=== PATIENT | female | born 1990 | race Hispanic/Latino ===

== ENCOUNTER 2016-10-02 09:49 | Day surgery (SDC) | payer MEDICAID ==
[2016-10-02 10:10] VITALS: RESP 20
[2016-10-02 10:17] VITALS: BMI 31.5
[2016-10-02] MEDS ORDERED: MethylPREDNISolone Depo 40 mg/ml Inj ONE (10:27)
[2016-10-02] MEDS ORDERED: Propofol 10 mg/ml Inj (20 ML) ONE ×2 (10:43→10:52)
[2016-10-02] MEDS: Bupivacaine HCl 0.25% PF (10 ml) Inj ONE ×2 (10:44→10:55)
[2016-10-02] MEDS: Iohexol 300 10 ML ONE ×2 (10:44→10:55)
[2016-10-02] MEDS: Lidocaine 1% Inj (20ml) ONE ×2 (10:45→10:55)
[2016-10-02] MEDS ORDERED: Lactated Ringer's 1,000 ML IV ONE ×2 (10:45)
[2016-10-02] MEDS: methylPREDNISolone Depo 80 mg/ml Inj ONE ×2 (10:45→10:55)
[2016-10-02 11:57] VITALS: BP 122/76; PULSE 89; TEMP 98.4; O2SAT 100
--- NOTE | 2016-10-02 14:42 | RAD ---
PROCEDURE: Lumbar Epidural Injection HISTORY: PAIN MANAGEMENT TECHNIQUE: Fluoroscopic guidance was provided for epidural injection for pain management purposes. FINDINGS: IMPRESSION: Fluoroscopic guidance provided for epidural injection. Please refer procedure.
--- NOTE | 2016-10-02 17:49 | OP ---
PROCEDURE DATE: 10/02/2016 PREOPERATIVE DIAGNOSIS: Lumbar radiculopathy. POSTOPERATIVE DIAGNOSIS: Lumbar radiculopathy. PROCEDURE: Bilateral L4-L5 transforaminal epidural steroid injection. ANESTHESIOLOGIST: Dr. Stevenson. SURGEON: Dr. Powell. ANESTHESIA TYPE: Monitored anesthesia care. COMPLICATIONS: None. SPECIMEN: None. PROCEDURE: After re-discussion of the procedure with the patient including its risks, benefits, alte rnatives, outcome data, possibility of no effect or increased pain, the patient consented to the proc edure. She denies any recent infections, bleeding tendencies, or being on anticoagulants. Decision was then made to proceed to the OR. The patient was placed on the fluoroscopy table in a prone position with 2 pillows underneath her abd omen. The L4 vertebral levels were first identified in anterior-posterior view. The procedure was f irst performed on the right side by turning the fluoroscopy towards the right at approximately 20 deg ree oblique angle. The skin overlying the 6 o'clock position of the pedicles was then infiltrated wi th 1% lidocaine using a 25 gauge needle. Subsequently, a 22 gauge 3-1/2 inch spinal needle was then incrementally advanced under fluoroscopic guidance until tip of the needle lay within the interverteb ral foramen. The same procedure was then repeated on the contralateral left side at the same levels. After appropriate placement of both needles, which was confirmed on the anteroposterior view and la teral views, approximately 1 mL of Isovue contrast was injected showing appropriate epidural and nerv e root spread without any signs of CSF or intravenous involvement. At this point, approximately 3 mL of 0.25% Marcaine and Depo-Medrol mixture was injected into each needle. At the end of the case, th e needles were removed and the patient's back was cleaned and dried and Band-Aids were applied. 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 She will have a followup in office in approximately 2-4 weeks. En-Oskar Powell MD cc: [id number] TT: 10/02/2016 17:49:04 calvin
== END 2016-10-02 12:30 | disposition home or self-care (01) ==
LOC: H.OPSURG 09:49
PROVIDERS: ATTEND Anesthesiology
DX: M51.26 Other intervertebral disc displacement, lumbar region (principal)

== ENCOUNTER 2016-11-20 10:30 | Day surgery (SDC) | payer MEDICAID ==
[2016-11-20 11:09] VITALS: RESP 18; O2SAT 98
[2016-11-20] MEDS ORDERED: Propofol 10 mg/ml Inj (20 ML) ONE (11:26)
[2016-11-20] MEDS ORDERED: Lidocaine Hydrochloride 5 ML INJ ONE (11:27)
[2016-11-20] MEDS ORDERED: Midazolam 2 MG/2 ML VIAL ONE (11:27)
[2016-11-20] MEDS ORDERED: Bupivacaine 0.5% Inj(30mL) IJ ONE (11:35)
[2016-11-20] MEDS ORDERED: methylPREDNISolone Depo 80 mg/ml Inj IM ONE (11:38)
[2016-11-20] MEDS ORDERED: Lidocaine 1% Inj (20ml) IM ONE (11:40)
[2016-11-20] MEDS ORDERED: HYDROmorphone 0.5 mg/0.5 ml ISec IVP PRN (11:43)
[2016-11-20] MEDS ORDERED: Lactated Ringer's 1,000 ML IV SCH (11:43)
[2016-11-20] MEDS ORDERED: Lactated Ringer's 1,000 ML IV ONE (11:43)
[2016-11-20 12:48] VITALS: BP 113/77; PULSE 92; TEMP 98.2
--- NOTE | 2016-11-20 13:04 | PCM.OP ---
Operative Report - Operative Report Date of Surgery/Procedure: 11/20/16 Time of Surgery/Procedure: 11:00 Surgeon: Andre Anesthesia/Sedation: Monitored anesthesia care Pre-Operative Diagnosis: Failed back syndrome Post-Operative Diagnosis: Same Indication for Surgery: Intractable pain Operative Findings: See below Procedure/Operation Description: After discussion of the procedure with the patient including his risk benefits alternatives all computer possibility of increased pain patient consented to the procedure. she denies any recent infections bleeding tendencies or being on anticoagulants position was then made to proceed to door. patient was placed on a fluoroscopy table in a prone position with 2 pillows underneath her abdomen. the back was prepped and draped in the usual sterile fashion and sterile technique was initiated during the entire procedure. the l3-l4 and l5 medial branch located at the intersection of the superior articular process and transverse process at the l4 and l5 pedicle along with the sacral ala. the procedure was finished to perform on the right side protruding of fluoroscopy towards the right approximately 15. the skin overlying the global target areas was infiltrated with 1% lidocaine using a 25- gauge needle. subsequently a 22-gauge 3 and a having spinal needle was incrementally advanced under fluoroscopic guidance until the tip of the needle made bony contact with THE target areas. after satisfactory positioning of alternating also approximately 3 ml of 8.5% marcaine and depo-medrol mixture was injected. the needle was then removed and symptoms of procedure was performed on the contralateral left-sided including the same medications and techniques. at the end of the case of patient's back was cleaned and dried and band-aid was applied. 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 she will have a follow-up in office in approximately 2-4 weeks. end of dictation Estimated Blood Loss: None. Complications: None. Discharge & Condition: Stable to home.
== END 2016-11-20 13:11 | disposition home or self-care (01) ==
LOC: H.OPSURG 10:30
PROVIDERS: ATTEND Anesthesiology
DX: M46.96 Unspecified inflammatory spondylopathy, lumbar region (principal)

== ENCOUNTER 2017-02-14 11:12 | Emergency (ER) | payer MEDICAID ==
[2017-02-14 11:18] VITALS: TEMP 978.2
[2017-02-14 11:19] VITALS: BMI 30.9
[2017-02-14] MEDS ORDERED: Lidocaine 5% Patch TD STA (11:40)
[2017-02-14] MEDS ORDERED: Lidocaine 5% Patch TD ONE (12:01)
--- NOTE | 2017-02-14 12:04 | ED PDOC ---
HPI: Back Time Seen by Provider: 02/14/17 11:25 Chief Complaint (Nursing): Back Pain Chief Complaint (Provider): Back Pain History Per: Patient History/Exam Limitations: no limitations Onset/Duration Of Symptoms: Days (x3 days) Current Symptoms Are (Timing): Still Present Additional Complaint(s): 26 y/o female with a past medical history of chronic back pain who presents to the emergency department with a complaint of a lower back pain x3 days. Reports she is under pain management with Dr. Powell. Admits taking Percocet and Flexeril with no relief of symptoms. Denies trauma, paresthesias, weakness, or incontinence. Of note, patient received 120 oxycodone on 12/30/2016. Past Medical History Reviewed: Historical Data, Nursing Documentation, Vital Signs Vital Signs: Last Vital Signs Temp 978.2 F H 02/14/17 11:18 Pulse 96 H 02/14/17 11:18 Resp 20 02/14/17 11:18 BP 133/85 02/14/17 11:18 Pulse Ox 98 02/14/17 11:18 - Medical History PMH: Back Problems (lumbar laminectomy) Denies: HIV, Chronic Kidney Disease - Surgical History Surgical History: Back Surgery (laminectomy) - Family History Family History: States: Unknown Family Hx - Social History Current smoker - smoking cessation education provided: No Alcohol: None Drugs: Denies - Home Medications Home Medications: Ambulatory Orders Medication Instructions Recorded Oxycodone HCl/Acetaminophen 1 tab PO PRN PRN 12/27/15 [Percocet 5-325 mg Tablet] Cyclobenzaprine [Cyclobenzaprine 10 mg PO TID PRN 11/20/16 HCl] Cyclobenzaprine [Cyclobenzaprine 10 mg PO TID PRN #10 tab 02/14/17 HCl] - Allergies Allergies/Adverse Reactions: Allergies Allergy/AdvReac Type Severity Reaction Status Date / Time No Known Allergies Allergy Verified 11/08/15 17:07 Review of Systems ROS Statement: Except As Marked, All Systems Reviewed And Found Negative Genitourinary Female: Negative for: Incontinence Musculoskeletal: Positive for: Back Pain Neurological: Negative for: Weakness (paresthesias) Physical Exam - Reviewed Nursing Documentation Reviewed: Yes Vital Signs Reviewed: Yes - Physical Exam Appears: Positive for: Non-toxic, No Acute Distress Head Exam: Positive for: ATRAUMATIC, NORMAL INSPECTION, NORMOCEPHALIC Skin: Positive for: Normal Color, Warm, Dry Back: Positive for: Other (Midline paraspinal tenderness at L4. No deformity. ) Extremity: Positive for: Normal ROM, Other (Able to raise b/l legs 90 degrees without pain. Sensation intact. Muscle strength a 5/5 ) Neurologic/Psych: Positive for: Alert, Oriented (x3) - ECG O2 Sat by Pulse Oximetry: 98 (RA) Pulse Ox Interpretation: Normal Medical Decision Making Medical Decision Making: Time: 11:39 Initial Impression: Back pain Initial Plan: --Urine DIP & Preg --Lumbar Spine x-ray --Valium 5 mg PO --TOradol 30 mg IM --Lidocaine 5% --Reevaluation --Observed ambulating from the bathroom without difficulty Time: 13:35 --Lumbar x-ray FINDINGS: BONES: Normal alignment. No listhesis. No fracture. DISC SPACES: Unremarkable. OTHER FINDINGS: Intrauterine device noted in pelvis. IMPRESSION: Unremarkable radiographs of the lumbar spine. Scribe Attestation: Documented by Kimberly Restrepo, acting as a scribe for Jasmin Lewis MD. Provider Scribe Attestation: All medical record entries made by the Scribe were at my direction and personally dictated by me. I have reviewed the chart and agree that the record accurately reflects my personal performance of the history, physical exam, medical decision making, and the department course for this patient. I have also personally directed, reviewed, and agree with the discharge instructions and disposition. Disposition - Clinical Impression Clinical Impression: Chronic back pain - Disposition Referrals: Jeremy Powell MD [Staff Provider] - Disposition: Routine/Home Disposition Time: 14:48 Condition: STABLE Prescriptions: Cyclobenzaprine [Cyclobenzaprine HCl] 10 mg PO TID PRN #10 tab PRN Reason: Pain Instructions: Chronic Back Pain (ED) Forms: RoomActually ([place])
[2017-02-14 12:23] LABS: RBC URINE 2 /hpf (0-3); URINE BACTERIA RARE (<OCC); URINE BILIRUBIN NEGATIVE (NEGATIVE); URINE BLOOD NEGATIVE (NEGATIVE); URINE COLOR YELLOW (YELLOW); URINE GLUCOSE (UA) NEG (Normal); URINE KETONE NEGATIVE (NEGATIVE); URINE LEUKOCYTE ESTERASE SMALL Leu/uL (Negative); URINE PROTEIN NEGATIVE (NEGATIVE); URINE UROBILINOGEN 0.2-1.0 mg/dL (0.2-1.0)
[2017-02-14 12:31] LABS: WBC URINE 14 /hpf (0-5)
--- NOTE | 2017-02-14 13:37 | RAD ---
PROCEDURE: Radiographs of the Lumbar Spine. HISTORY: Low back pain COMPARISON: No prior. FINDINGS: BONES: Normal alignment. No listhesis. No fracture. DISC SPACES: Unremarkable. OTHER FINDINGS: Intrauterine device noted in pelvis. IMPRESSION: Unremarkable radiographs of the lumbar spine.
[2017-02-14 14:59] VITALS: BP 121/65; PULSE 75; RESP 16
[2017-02-16 11:10] VITALS: O2SAT 98
== END 2017-02-14 14:58 | disposition home or self-care (01) ==
LOC: H.ER 11:12
DX: M54.9 Dorsalgia, unspecified (principal); G89.4 Chronic pain syndrome
CPT/HCPCS: 72114; 81003; 81025; 96372; 99283; J1885

== ENCOUNTER 2018-03-13 08:59 | Day surgery (SDC) | payer MEDICAID ==
[2018-03-13] MEDS ORDERED: Lactated Ringer's 1,000 ML IV ONE (09:30)
[2018-03-13 09:36] VITALS: BMI 33.6
[2018-03-13] MEDS ORDERED: Iohexol 300 10 ML ONE (10:22)
[2018-03-13] MEDS ORDERED: MethylPREDNISolone Depo 40 mg/ml Inj ONE (10:22)
[2018-03-13] MEDS ORDERED: Lidocaine 1% Inj (20ml) ONE (10:22)
[2018-03-13] MEDS ORDERED: Bupivacaine HCl 0.25% PF (30 ml) Inj ONE (10:22)
[2018-03-13] MEDS ORDERED: Propofol 10 mg/ml Inj (20 ML) ONE (10:40)
[2018-03-13] MEDS ORDERED: Lidocaine 1% 5ml Abboject ONE (10:40)
[2018-03-13] MEDS ORDERED: Lactated Ringer's 1,000 ML IV SCH (11:00)
[2018-03-13 11:27] VITALS: RESP 18
[2018-03-13 12:50] VITALS: BP 113/68; PULSE 76; TEMP 98; O2SAT 99
--- NOTE | 2018-03-14 02:10 | OP ---
PROCEDURE DATE: 03/13/2018 PREOPERATIVE DIAGNOSIS: Lumbar radiculopathy. POSTOPERATIVE DIAGNOSIS: Lumbar radiculopathy. PROCEDURE: Bilateral L4 and L5 transforaminal epidural steroid injection and also bilateral cluneal nerve blocks. ANESTHESIA ADMINISTERED BY: Idris Gonzalez MD. SURGEON: Jeremy Powell MD ANESTHESIA TYPE: Monitored anesthesia care. COMPLICATIONS: None. SPECIMEN: None. DESCRIPTION OF PROCEDURE: After we had a discussion of the procedure with the patient including its risks, benefits, alternatives, outcome data, and possibility of no effect or increased pain, the patient consented to the procedure. She denies any recent infection, bleeding tendencies, or being on anticoagulants. A decision was then made to proceed to the OR. The patient was placed on the fluoroscopy table in a prone position with two pillows underneath her abdomen. The back was prepped and draped in the usual sterile fashion. A sterile technique was adhered to during the entire procedure. The L4 vertebral levels were first identified in the anteroposterior view. Angulation towards the right at approximately 20 degrees was used to maximize the visualization of the right L4 pedicle. The skin overlying the 6 o'clock position of the pedicle was then infiltrated with 1% lidocaine using a 25-gauge needle. Subsequently, a 22-gauge 3.5-inch spinal needle was then incrementally advanced under fluoroscopic guidance until tip of the needle walked into the intervertebral foramen. This was confirmed by injecting approximately 0.5 mL Isovue contrast. After appropriate placement of the needle, approximately 3 mL of 0.25% Marcaine and Depo-Medrol mixture was injected. The needle was then removed. The same exact procedure was performed on the contralateral left side using the same medications and techniques. The cluneal nerves blocks were performed. The target is at the iliac crest on both sides. The procedure was first performed on the right side by inserting a 22-gauge 3.5 inch needle perpendicular to the skin until bony contact with iliac crest at the upper pole was made. After satisfactory position of needle, approximately 5 mL of 0.25% Marcaine and Depo-Medrol mixture was distributed along the rim of the pelvic and over the iliac crest. The needle was then removed, The same exact procedure was performed on the contralateral left side using same medications and techniques. At the end of the case, the patient's back was cleaned and dry bandages were applied. The patient was then transferred to the recovery area in good condition without any signs of CERTIFIED SURGICAL ASSISTANT toxicity or any neurological deficit. She will be following in our office in approximately two to four weeks. En-Oskar Powell MD
== END 2018-03-13 13:05 | disposition home or self-care (01) ==
LOC: H.OPSURG 08:59
PROVIDERS: ATTEND Anesthesiology
DX: M54.16 Radiculopathy, lumbar region (principal); M19.90 Unspecified osteoarthritis, unspecified site; E66.9 Obesity, unspecified
CPT/HCPCS: 64483; J1030; J2704; J3010; J7120; Q9967